=== PATIENT | female | born 1970 | race Caucasian/White ===

== ENCOUNTER 2024-07-28 06:05 | Day surgery (SDC) | payer BC ==
[~2024-07-28 06:05] MED LIST: Lactated Ringers 1,000 ML IV SCH; Morphine 8 MG, EPINEPHrine 0.3 MG, Cefuroxime 750 MG, Ketorolac 30 MG, Sodium Chloride ... PRN; Sodium Chloride 0.9% 10 ML Syringe FLUSH PRN; Sodium Chloride 0.9% 10 ML Syringe FLUSH SCH
[2024-07-28] MEDS: Acetaminophen 325 MG Tab PO ONE (06:10)
[2024-07-28] MEDS: Pregabalin 25 MG Cap PO ONE (06:11)
[2024-07-28] MEDS: oxyCODONE ER 10 MG TAB.ER PO ONE (06:11)
[2024-07-28] MEDS ORDERED: Propofol 200 MG/20 ML SDV ONE ×2 (06:26→07:37)
[2024-07-28] MEDS ORDERED: Ketorolac 30 MG/ML SDV ONE (06:27)
[2024-07-28] MEDS ORDERED: Ondansetron 4 MG/2 ML SDV ONE ×2 (06:27→06:34)
[2024-07-28] MEDS ORDERED: Midazolam 1 MG/ML 2 ML SDV ONE (06:35)
[2024-07-28 06:44] LABS: INR 0.98; PROTHROMBIN TIME 10.4 SECONDS (9.7-12.0)
[2024-07-28 06:46] LABS: PTT,PARTIAL THROMBOPLSTIN TIME 25.9 SECONDS (21.7-31.4)
[2024-07-28] MEDS ORDERED: ceFAZolin 2 GM Vial ONE (07:07)
[2024-07-28] MEDS ORDERED: ePHEDrine 50 MG/ML SDV ONE (07:09)
[2024-07-28] MEDS ORDERED: Phenylephrine 1% 10 MG/ML SDV ONE (07:17)
[2024-07-28] MEDS ORDERED: dexmedeTOMIDine HCl 200 MCG/2 ML SDV ONE (07:31)
[2024-07-28] MEDS ORDERED: Ropivacaine 0.5% 5 MG/ML 30 ML SDV ONE (07:31)
[2024-07-28] MEDS: Morphine 8 MG, EPINEPHrine 0.3 MG, Cefuroxime 750 MG, Ketorolac 30 MG, Sodium Chloride ... PRN (08:09)
[2024-07-28] MEDS: VANCOmycin 1 GM SDV ONE (08:14)
[2024-07-28] MEDS: Tranexamic Acid 1,000 MG/10 ML Vial ONE (08:14)
[2024-07-28] MEDS: Bupivacaine 0.25% 10 ML SDV ONE (08:32)
[2024-07-28] MEDS: Triamcinolone Acetonide 40 MG/ML 1 ML SDV ONE (08:32)
[2024-07-28] MEDS: oxyCODONE 5 MG Tab PO PRN (10:06)
== END 2024-07-28 13:40 | disposition home or self-care (01) ==
LOC: JD.SDS 06:05
PROVIDERS: ATTEND Orthopaedic Surgery
DX: M17.0 Bilateral primary osteoarthritis of knee (principal); E11.9 Type 2 diabetes mellitus without complications; E03.9 Hypothyroidism, unspecified; I10 Essential (primary) hypertension; E78.2 Mixed hyperlipidemia; K21.9 Gastro-esophageal reflux disease without esophagitis; Z87.891 Personal history of nicotine dependence; Z79.890 Hormone replacement therapy; Z79.899 Other long term (current) drug therapy
CPT/HCPCS: 0055T; 20610; 27447; 36415; 64447; 73560; 85610; 85730; 97110; 97116; 97161; A9270; J0171; J0665; J0690; J0697; J1885; J2250; J2272; J2371; J2405; J2704; J2795; J3301; J3490

== ENCOUNTER 2024-11-17 06:00 | Day surgery (SDC) | payer BC ==
[~2024-11-17 06:00] MED LIST changes: -Lactated Ringers 1,000 ML IV SCH; -Morphine 8 MG, EPINEPHrine 0.3 MG, Cefuroxime 750 MG, Ketorolac 30 MG, Sodium Chloride ... PRN; +Scopalamine 1mg/3day Transdermal Patch TRDERM PRN
[2024-11-17] MEDS: Lactated Ringers 1,000 ML IV SCH (06:25)
[2024-11-17] MEDS ORDERED: Propofol 200 MG/20 ML SDV ONE ×3 (06:37→07:46)
[2024-11-17] MEDS: oxyCODONE ER 10 MG TAB.ER PO ONE (06:45)
[2024-11-17] MEDS: Acetaminophen 325 MG Tab PO ONE (06:45)
[2024-11-17] MEDS: Scopalamine 1mg/3day Transdermal Patch TOP ONE (06:45)
[2024-11-17] MEDS: Pregabalin 25 MG Cap PO ONE (06:46)
[2024-11-17] MEDS ORDERED: fentaNYL 100 MCG/2 ML SDV ONE (06:48)
[2024-11-17] MEDS ORDERED: dexmedeTOMIDine HCl 200 MCG/2 ML SDV ONE (06:49)
[2024-11-17] MEDS ORDERED: Dexamethasone 4 MG/ML 5 ML MDV ONE (06:49)
[2024-11-17] MEDS ORDERED: Ondansetron 4 MG/2 ML SDV ONE (06:49)
[2024-11-17] MEDS ORDERED: ceFAZolin 2 GM Vial ONE (07:17)
[2024-11-17] MEDS ORDERED: ePHEDrine 50 MG/ML SDV ONE (07:30)
[2024-11-17] MEDS ORDERED: Ropivacaine 0.5% 5 MG/ML 30 ML SDV ONE (07:40)
[2024-11-17] MEDS ORDERED: EPINEPHrine 1 MG/ML SDV ONE (07:40)
[2024-11-17] MEDS ORDERED: Lactated Ringers 1,000 ML ONE (07:48)
[2024-11-17] MEDS: Morphine 8 MG, EPINEPHrine 0.3 MG, Cefuroxime 750 MG, Ketorolac 30 MG, Sodium Chloride ... PRN (08:10)
[2024-11-17] MEDS: Tranexamic Acid 1,000 MG/10 ML Vial ONE (08:19)
[2024-11-17] MEDS: VANCOmycin 1 GM SDV ONE (08:19)
[2024-11-17] MEDS ORDERED: Ondansetron 4 MG/2 ML SDV IVPUSH PRN (09:00)
[2024-11-17] MEDS ORDERED: HYDROmorphone 0.5 MG/0.5 ML Syringe IVPUSH PRN (09:00)
[2024-11-17] MEDS ORDERED: fentaNYL 100 MCG/2 ML SDV IVPUSH PRN (09:00)
[2024-11-17] MEDS: oxyCODONE 5 MG Tab PO PRN (10:13)
== END 2024-11-17 13:10 | disposition home or self-care (01) ==
LOC: JD.SDS 06:00
PROVIDERS: ATTEND Orthopaedic Surgery
DX: M17.12 Unilateral primary osteoarthritis, left knee (principal); I10 Essential (primary) hypertension; E11.9 Type 2 diabetes mellitus without complications; K21.9 Gastro-esophageal reflux disease without esophagitis; E78.2 Mixed hyperlipidemia; E03.9 Hypothyroidism, unspecified; Z79.890 Hormone replacement therapy; Z79.899 Other long term (current) drug therapy
CPT/HCPCS: 0055T; 27447; 64447; 73560; 97116; 97161; 97530; A9270; C1713; C1776; J0171; J0690; J0697; J1100; J1885; J2272; J2405; J2704; J2795; J3010; J7120; J3490